=== PATIENT | male | born 1965 | race Caucasian/White ===

== ENCOUNTER 2021-11-08 03:57 | Emergency (ER) | payer OTHER ==
[2021-11-08] MEDS ORDERED: Lactated Ringers 1,000 ML IV ONE (04:18)
== END 2021-11-08 06:55 | disposition home or self-care (01) ==
LOC: JD.ED 03:57
DX: R20.2 Paresthesia of skin (principal); R55 Syncope and collapse
CPT/HCPCS: 36415; 80053; 80307; 83690; 83735; 84484; 85025; 93005; 99284; J7120; 93010; 99285